=== PATIENT | female | born 1950 | race Caucasian/White ===

== ENCOUNTER 2025-05-03 15:57 | Emergency (ER) | payer MEDICARE, OTHER, SELFPAY ==
[2025-05-03 16:05] VITALS: BP 183/83; PULSE 84; RESP 20; TEMP 37; O2SAT 98; BMI 43.8
--- NOTE | 2025-05-03 16:17 | DI.CT.S_ITS ---
PROCEDURE: CT FACIAL BONES WO CON INDICATIONS: fell hit left side of face TECHNIQUE: Noncontrast 2.5 mm thick axial images acquired from the mandible through the frontal sinuses, with coronal and sagittal reformatting. For radiation dose reduction, the following was used: automated exposure control, adjustment of mA and/or kV according to patient size. COMPARISON: None. FINDINGS: Image quality: Excellent. Bones and teeth: Orbital michael are intact. Sinus michael show no fracture or deformity. Nasal bones and septum are intact. Visualized portions of the mandible demonstrate no fractures or subluxation. Zygomatic arches are intact. Pterygoid plates are intact. Visualized portions of the skull base and auditory canals are intact. Sinuses: Paranasal sinuses are aerated, without fluid levels, mucosal thickening, or mucoceles. Mastoid air cells are aerated. Soft tissues: No edema, masses, or fluid collections. No enlarged lymph nodes. No soft tissue lacerations or debris. Vascular: Visualized vascular structures appear normal in the absence of contrast. Bony vascular foramina and canals are intact. IMPRESSION: No displaced facial bone fracture or mandibular fracture. Dictated by: Thomas Gatica M.D. on 05/03/2025 at 16:59 Approved by: Thomas Gatica M.D. on 05/03/2025 at 17:00
--- NOTE | 2025-05-03 16:17 | DI.CT.S_ITS ---
PROCEDURE: CT HEAD/BRAIN WO CON INDICATIONS: fell hit left side of face TECHNIQUE: Noncontrast 4.5 mm thick angled axial sections acquired from the foramen magnum to the vertex, with coronal and sagittal reformats. For radiation dose reduction, the following was used: automated exposure control, adjustment of mA and/or kV according to patient size. COMPARISON: None. FINDINGS: Image quality: Diagnostic. CSF spaces: Basal cisterns are patent. No extra-axial fluid collections. The ventricles are symmetric in size and shape. Brain: No intracranial bleeds or mass effect. There is cerebral volume loss, with resultant ventricular and sulcal prominence. There are moderate periventricular and deep white matter chronic small vessel ischemic changes. There is intracranial internal carotid artery atherosclerosis. Skull and face: Calvarium and visualized facial bones appear intact, without suspicious lesions. Sinuses: Visualized sinuses and mastoids are clear. IMPRESSION: No acute intracranial pathology. Dictated by: Thomas Gatica M.D. on 05/03/2025 at 16:58 Approved by: Thomas Gatica M.D. on 05/03/2025 at 16:59
--- NOTE | 2025-05-03 16:17 | DI.CT.S_ITS ---
PROCEDURE: CT CERVICAL SPINE WO CON INDICATIONS: fell hit left side of face TECHNIQUE: Noncontrast 3 mm thick sections acquired from the skull base to the T4 level. Sagittal and coronal reformats were then constructed. For radiation dose reduction, the following was used: automated exposure control, adjustment of mA and/or kV according to patient size. COMPARISON: None. FINDINGS: Image quality: Excellent. Bones: No fractures or dislocations. Cervical spondylosis with prominent multilevel bilateral facet arthropathy. Visualized superior ribs are intact. Soft tissues: Prevertebral soft tissues are normal in thickness. No paravertebral hematomas. No apical pneumothoraces. IMPRESSION: No displaced fracture or traumatic subluxation. Cervical spondylosis. Dictated by: Thomas Gatica M.D. on 05/03/2025 at 17:01 Approved by: Thomas Gatica M.D. on 05/03/2025 at 17:02
--- NOTE | 2025-05-03 17:54 | ED_ITS ---
<Statement entered by Elan Guevara DO - 05/03/25 19:15> Dr. Guevara: I was immediately available in the department for consultation. I did not actually see the patient. HPI - Fall General Chief Complaint: Fall Stated Complaint: fell cut on left eye Time Seen by Provider: 05/03/25 17:53 History of Present Illness HPI Narrative: Ms. Kan is a very pleasant 75-year-old female with a past medical history of diabetes, hypertension who presents to the emergency department for left facial laceration that occurred prior to arrival. [place], walking towards her car when she leaned forward to grab the door of the car but she was too far away and fell forward hitting the left side of her face on the tire of the car. She sustained a laceration to the left eyebrow, abrasion below the left eye. She denies any pain of her neck back or extremities. States that her tetanus shot is up-to-date within the last 5 years. She is not on blood thinners, denies any visual disturbance or nosebleed. She is visiting from [place]. Related Data Allergies Allergy/AdvReac Type Severity Reaction Status Date / Time Opioids - Morphine Analogues Allergy Mild Verified 05/03/25 16:06 povidone-iodine Allergy Verified 05/03/25 16:06 Review of Systems Review of Systems ROS Unobtainable: All systems reviewed & are unremarkable except as noted in HPI and below Patient History Smoking Status: Never smoker Exam Narrative Exam Narrative: GENERAL: 75 year old patient appears stated age. Well-developed patient, in no acute distress. HEAD: 2 cm linear laceration through left eyebrow. No scalp lacerations. Normocephalic. EYES: PERRL. Extraocular motions intact. No scleral icterus. No injection or drainage. Left periocular edema and abrasion below the eye and laceration above the eye. ENT: Nose without bleeding, purulent drainage. Normal TMs bilaterally with no hemotympanum. NECK: Trachea midline. Cervical ROM intact. No midline cervical tenderness. CARDIOVASCULAR: Regular rate and rhythm. RESPIRATORY: ?Nonlabored respirations. ?Speaking in clear, full sentences. ?Clear to auscultation. Breath sounds equal bilaterally. No wheezes, rales, or rhonchi. ? GASTROINTESTINAL: Abdomen soft, non-tender, nondistended. EXTREMITIES: No edema or joint tenderness. BACK: Nontender NEURO: AOx3. ?Clear speech. ?Moves all 4 extremities appropriately. SKIN: Facial wounds described above. Initial Vital Signs Initial Vital Signs: Vital Signs Temperature 98.6 F 05/03/25 16:05 Pulse Rate 84 05/03/25 16:05 Respiratory Rate 20 05/03/25 16:05 Blood Pressure 183/83 H 05/03/25 16:05 Pulse Oximetry 98 05/03/25 16:05 Oxygen Delivery Method Room Air 05/03/25 16:05 Procedures Laceration Repair Laceration 1: Site: face (left eyebrow) Side (If applicable): left Size (cm): 2 Description: linear Depth: simple, single layer Local Anesthetic: lidocaine 1% and with epi Amount of anesthesia used (mL): 3 Pre-repair: wound explored, irrigated extensively, deep structures intact and cleansed with chlorhexadine Skin layer closed with: nylon Skin layer suture size: 5-0 Number of sutures: 3 Laceration 2: Site: face (left cheekbone region) Size (cm): 3 Description: linear Depth: simple, single layer Local Anesthetic: other anesthetic (none) Pre-repair: wound explored, irrigated extensively and deep structures intact Skin layer closed with: dermabond Course Orders Ordered: ED Orders 05/03/25 16:17 CT cervical spine wo con Stat CT facial bones wo con Stat CT head/brain wo con Stat Discontinued Medications Bacitracin (Bacitracin Oint 0.9 Gm Pckt) 1 applic TOP NOW ONE Stop: 05/03/25 18:44 Lidocaine/Epinephrine (Lidocaine 1% W/Epi 10ml) 5 ml INJ NOW ONE Stop: 05/03/25 18:08 Last Admin: 05/03/25 18:12 Dose: 5 ml Vital Signs Vital signs: Vital Signs - 8 hr 05/03/25 16:05 05/03/25 18:00 05/03/25 18:01 Temperature 98.6 F Pulse Rate 84 88 Respiratory Rate 20 16 Blood Pressure 183/83 H 172/81 H Pulse Oximetry 98 96 Oxygen Delivery Method Room Air Room Air MDM - Fall Imaging Data CT scan - head: Radiologist's Impression: PROCEDURE: CT HEAD/BRAIN WO CON INDICATIONS: fell hit left side of face TECHNIQUE: Noncontrast 4.5 mm thick angled axial sections acquired from the foramen magnum to the vertex, with coronal and sagittal reformats. For radiation dose reduction, the following was used: automated exposure control, adjustment of mA and/or kV according to patient size. COMPARISON: None. FINDINGS: Image quality: Diagnostic. CSF spaces: Basal cisterns are patent. No extra-axial fluid collections. The ventricles are symmetric in size and shape. Brain: No intracranial bleeds or mass effect. There is cerebral volume loss, with resultant ventricular and sulcal prominence. There are moderate periventricular and deep white matter chronic small vessel ischemic changes. There is intracranial internal carotid artery atherosclerosis. Skull and face: Calvarium and visualized facial bones appear intact, without suspicious lesions. Sinuses: Visualized sinuses and mastoids are clear. IMPRESSION: No acute intracranial pathology. Dictated by: Thomas Gatica M.D. on 05/03/2025 at 16:58 Approved by: Thomas Gatica M.D. on 05/03/2025 at 16:59 CT - cervical spine: Radiologist's Impression: PROCEDURE: CT CERVICAL SPINE WO CON INDICATIONS: fell hit left side of face TECHNIQUE: Noncontrast 3 mm thick sections acquired from the skull base to the T4 level. Sagittal and coronal reformats were then constructed. For radiation dose reduction, the following was used: automated exposure control, adjustment of mA and/or kV according to patient size. COMPARISON: None. FINDINGS: Image quality: Excellent. Bones: No fractures or dislocations. Cervical spondylosis with prominent multilevel bilateral facet arthropathy. Visualized superior ribs are intact. Soft tissues: Prevertebral soft tissues are normal in thickness. No paravertebral hematomas. No apical pneumothoraces. IMPRESSION: No displaced fracture or traumatic subluxation. Cervical spondylosis. Dictated by: Thomas Gatica M.D. on 05/03/2025 at 17:01 Approved by: Thomas Gatica M.D. on 05/03/2025 at 17:[address]: Radiologist's Impression: PROCEDURE: CT FACIAL BONES WO CON INDICATIONS: fell hit left side of face TECHNIQUE: Noncontrast 2.5 mm thick axial images acquired from the mandible through the frontal sinuses, with coronal and sagittal reformatting. For radiation dose reduction, the following was used: automated exposure control, adjustment of mA and/or kV according to patient size. COMPARISON: None. FINDINGS: Image quality: Excellent. Bones and teeth: Orbital michael are intact. Sinus michael show no fracture or deformity. Nasal bones and septum are intact. Visualized portions of the mandible demonstrate no fractures or subluxation. Zygomatic arches are intact. Pterygoid plates are intact. Visualized portions of the skull base and auditory canals are intact. Sinuses: Paranasal sinuses are aerated, without fluid levels, mucosal thickening, or mucoceles. Mastoid air cells are aerated. Soft tissues: No edema, masses, or fluid collections. No enlarged lymph nodes. No soft tissue lacerations or debris. Vascular: Visualized vascular structures appear normal in the absence of contrast. Bony vascular foramina and canals are intact. IMPRESSION: No displaced facial bone fracture or mandibular fracture. Dictated by: Thomas Gatica M.D. on 05/03/2025 at 16:59 Approved by: Thomas Gatica M.D. on 05/03/2025 at 17:00 MDM Narrative Medical decision making narrative: 75-year-old female with a past medical history of diabetes, hypertension who presents to the emergency department for left facial laceration that occurred prior to arrival. Differential diagnosis includes but is not limited to facial laceration, abrasion, closed head injury, concussion, ICH, etc. On exam patient is in no acute distress, nontoxic appearing, vital signs appropriate. She has laceration of the left eyebrow and abrasion below the left eye. No visual disturbance or pain with extraocular movements. No focal neurologic deficits. Imaging of head, face, cervical spine obtained revealing no acute abnormalities. Patient states Tdap is up-to-date within the last 5 years, we will proceed with first front ventilator irrigation cleansing and repair of wounds. Left eyebrow laceration repaired with 3 sutures. After cleansing the skin a very superficial linear horizontal laceration was noted below the eye and this was repaired using Dermabond. Recommended suture removal in 5 days. Discussed proper wound care, signs symptoms of infection, PCP follow up, ED return precautions. Patient verbalized understanding of all information agreeable with the plan. She is stable for discharge home. Discharge Plan Departure Patient Disposition: Home Clinical Impression: Fall from ground level Laceration of face Qualifiers: Encounter type: initial encounter Qualified Code(s): S01.81XA - Laceration without foreign body of other part of head, initial encounter Instructions: DI for Laceration Repair Activity Restrictions/Additional Instructions: Dear Ms. Kan, Thank you for coming to the emergency department. Today you had a laceration to your left eyebrow. We have placed 3 sutures. They need to be removed in 5days. You may do this in your doctor's office, the [id number], or here if necessary. Please keep the dressing on your wound clean, dry, and intact for the next 24 hours. After this time, you may remove the dressing and gently clean the wound with soap and water, then pat dry. Keep the wound clean and covered. Avoid soaking the wound in any water such as a bath, pool, or the ocean. If you develop any signs of wound infection such as increased redness, pus drainage, streaking redness, or fevers, please return to the ER immediately for evaluation. Once sutures are removed and the wound has healed, apply sunscreen daily to reduce the appearance of scars. Please follow up with your primary care doctor within the next 2-3 days for ER follow-up. (If you do not have a PCP you can call [phone]. ?to schedule an appointment with an [facility] Primary Care Provider) IF YOU DEVELOP ANY NEW OR WORSENING SYMPTOMS, RETURN TO THE ER! Please read the attached instructions, they highlight more specific treatments and interventions for you at home. Thank you for letting me participate in your care, Wen Ward PA-C Stand Alone Forms: Patient Portal/API
[2025-05-03 18:00] VITALS: BP 172/81
[2025-05-03 18:01] VITALS: PULSE 88; RESP 16; O2SAT 96
[2025-05-03] MEDS: LIDOCAINE 1% W/EPI 10ML 5 ML INJ (18:12)
[2025-05-03 18:30] VITALS: PULSE 86; O2SAT 98
[2025-05-03 19:00] VITALS: PULSE 87; O2SAT 98
[2025-05-03] MEDS: BACITRACIN OINT 0.9 GM PCKT 1 APPLIC TOP (19:13)
== END 2025-05-03 19:22 | disposition home or self-care (01) ==
PROVIDERS: Emergency Provider Physician Assistant
DX: S01.81XA Laceration without foreign body of other part of head, initial encounter (principal); W18.09XA Striking against other object with subsequent fall, initial encounter
CPT/HCPCS: 12013; 70450; 70486; 72125; 99283; 99284